=== PATIENT | female | born 1980 | race Caucasian/White ===

== ENCOUNTER 2018-09-05 10:52 | Emergency (ER) | payer BC ==
[~2018-09-05] VITALS: Ht 170.2 cm; Wt 69.4 kg
[2018-09-05] MEDS ORDERED: CEPHALEXIN500 MG (11:04)
== END 2018-09-05 13:26 | disposition home or self-care (01) ==
LOC: ER 10:52
DX: L08.89 Other specified local infections of the skin and subcutaneous tissue (principal); S80.211S Abrasion, right knee, sequela; W22.8XXS Striking against or struck by other objects, sequela

== ENCOUNTER 2018-09-07 07:45 | Emergency (ER) | payer BC ==
[~2018-09-07] VITALS: Ht 170.2 cm; Wt 69.4 kg
[~2018-09-07 07:45] MED LIST: CEPHALEXIN500 MG
[2018-09-07] MEDS ORDERED: MUPIROCIN22 GM (07:53)
[2018-09-07] MEDS ORDERED: ACYCLOVIR400 MG (07:53)
== END 2018-09-07 09:30 | disposition home or self-care (01) ==
LOC: ER 07:45
DX: L13.0 Dermatitis herpetiformis (principal)